=== PATIENT | male | born 1955 | race Caucasian/White ===

== ENCOUNTER → 2021-10-29 08:05 | Outpatient (CLI) | payer OTHER, SELFPAY ==
[2021-10-29 20:41] LABS: SARS-CoV-2 RNA PCR Positive
== END ==
PROVIDERS: PCP Internal Medicine; Visit Provider Internal Medicine
DX: U07.1 COVID-19 (principal)
CPT/HCPCS: C9803; U0003; U0005

== ENCOUNTER 2022-04-29 01:14 | Day surgery (SDC) | payer OTHER, SELFPAY ==
[2022-04-06 13:55] VITALS: BMI 25.1
--- NOTE | 2022-04-28 10:19 | PM.HPGS ---
History of Present Illness History of Present Illness Consent: Risks, benefits, and alternatives have been discussed and questions answered. Patient agrees to proceed with procedure. Chief complaint: neoplasm screening Narrative: Lyndon Rodriguez is a 66 year old male Referred for colon cancer screening. He has a history of polyps. Review of Systems Review of Systems: All systems reviewed & are unremarkable except as noted in HPI and below PMFSH Past Medical History Medical History Chronic GERD Diabetes Glaucoma HTN (hypertension) Hyperlipidemia Social History Social History Smoking status: Never smoker Alcohol intake: current Drinks per week: 10 Living arrangements: with family Spiritual care concerns: No Meds Home Medications and Allergies Home Medications Medication Instructions Recorded Confirmed Type atorvastatin 20 mg tablet 20 mg PO DAILY 04/06/22 04/06/22 History ergocalciferol (vitamin D2) 400 400 unit PO DAILY 04/06/22 04/06/22 History unit capsule ezetimibe 10 mg tablet 10 mg PO DAILY 04/06/22 04/06/22 History flunisolide 25 mcg (0.025 %) nasal 2 spray intranasal DAILY PRN 04/06/22 04/06/22 History spray Allergy Symptoms metformin 500 mg tablet 500 mg PO BID 04/06/22 04/06/22 History nebivolol 5 mg tablet 5 mg PO DAILY 04/06/22 04/06/22 History omega-3 fatty acids-vitamin E 1 cap PO DAILY 04/06/22 04/06/22 History 1,000 mg capsule timolol maleate 0.5 % eye drops 1 drp EACH EYE DAILY 04/06/22 04/06/22 History Allergies Allergy/AdvReac Type Severity Reaction Status Date / Time No Known Allergies Allergy Verified 04/29/22 06:38 Exam Resp: Auscultation: clear to auscultation bilaterally Cardio: Rate: regular rate Rhythm: regular rhythm GI: GI Palp: Yes Soft to palpation and No Tenderness to palpation present (GI) Assessment and Plan Assessment and plan (1) Colon cancer screening: Code(s): Z12.11 - Encounter for screening for malignant neoplasm of colon Status: Acute Assessment and Plan: Colonoscopy with possible biopsy or polypectomy or cautery or injection of substances.
--- NOTE | 2022-04-28 12:41 | WPDANESEPPF ---
Anes - Initial Pre Proc Eval Procedure: Operation Date: 04/29/22 07:30 Proposed Procedures p Screening Colonoscopy - Abhinav Vela MD Date/Time: 04/28/22 12:41 Surgeon: Abhinav Vela MD Pre Op Diagnosis: neoplasm screening Patient Data Age: 66 Gender: M Height: 1.83 m Weight: 84 kg Allergies Allergy/AdvReac Type Severity Reaction Status Date / Time No Known Allergies Allergy Verified 04/29/22 06:38 Home Medications Medication Instructions Recorded Confirmed Type atorvastatin 20 mg tablet 20 mg PO DAILY 04/06/22 04/06/22 History ergocalciferol (vitamin D2) 400 400 unit PO DAILY 04/06/22 04/06/22 History unit capsule ezetimibe 10 mg tablet 10 mg PO DAILY 04/06/22 04/06/22 History flunisolide 25 mcg (0.025 %) nasal 2 spray intranasal DAILY PRN 04/06/22 04/06/22 History spray Allergy Symptoms metformin 500 mg tablet 500 mg PO BID 04/06/22 04/06/22 History nebivolol 5 mg tablet 5 mg PO DAILY 04/06/22 04/06/22 History omega-3 fatty acids-vitamin E 1 cap PO DAILY 04/06/22 04/06/22 History 1,000 mg capsule timolol maleate 0.5 % eye drops 1 drp EACH EYE DAILY 04/06/22 04/06/22 History Patient hx anesthesia problems: none Family hx anesthesia problems: none Results Review: All pre-operative results and documents have been reviewed as part of the pre-operative evaluation. [facility] Past Medical History Medical History (Updated 04/28/22 @ 12:42 by Jacinto Prater MD) Chronic GERD Diabetes Glaucoma HTN (hypertension) Hyperlipidemia Social History Social History Smoking status: Never smoker Alcohol intake: current Drinks per week: 10 Living arrangements: with family Spiritual care concerns: No Anes - Eval Final PreProcedure Day of Procedure 04/28/22 12:41 Patient weight: normal Heart: regular rate and rhythm Lungs: clear to auscultation and normal air movement Airway: Mallampati scale class II Neurological: alert and oriented Last oral intake: >/= 8 hours ASA classification: III Emergent: no Anesthetic plan: proceed Anesthesia type and monitoring: general GIVS Results Review: All pre-operative results and documents have been reviewed as part of the pre-operative evaluation. Informed Consent: The patient's anesthetic plan and its attendant risks and benefits were discussed with the patient/family/POA. Questions were solicited and answers provided to the satisfaction of the patient/family/POA.
[2022-04-29 06:40] VITALS: BP 150/85; PULSE 56; RESP 18; TEMP 36.2; O2SAT 99
[2022-04-29] MEDS: LACTATED RINGERS 1,000 ML 150 ML IV CONT (06:48)
[2022-04-29 06:53] LABS: Glucose Point of Care 133 mg/dl (65-105)
[2022-04-29] MEDS: SIMETHICONE ORAL SUSPENSION 20 MG/0.3 ML 30 ML BOTTLE 0.6 ML IRRIGATION (07:35)
--- NOTE | 2022-04-29 07:40 | SUR.OPER ---
PT ROLLED ONTO BACK TO REACH CECUM, THEN RETURNED TO LEFT LATERAL
[2022-04-29 07:47] VITALS: BP 133/81; PULSE 58; RESP 13; O2SAT 99
[2022-04-29 07:57] VITALS: BP 130/79; PULSE 55; RESP 13; O2SAT 99
[2022-04-29 08:07] VITALS: BP 142/84; PULSE 60; RESP 13; O2SAT 99
== END 2022-04-29 08:18 | disposition home or self-care (01) ==
PROVIDERS: PCP Internal Medicine; Visit Provider Internal Medicine Gastroenterology
PROC: 0DJD8ZZ Inspection of Lower Intestinal Tract, Via Natural or Artificial Opening Endoscopic (ICD-10-PCS; CPT 45378; principal; 2022-04-29 07:30)
DX: Z12.11 Encounter for screening for malignant neoplasm of colon (principal); Z86.010 Personal history of colon polyps; I10 Essential (primary) hypertension; E11.9 Type 2 diabetes mellitus without complications; E78.5 Hyperlipidemia, unspecified; K21.9 Gastro-esophageal reflux disease without esophagitis; H40.9 Unspecified glaucoma; Z79.84 Long term (current) use of oral hypoglycemic drugs
CPT/HCPCS: 45378; 82948; J2704; J7120

== ENCOUNTER 2023-07-18 15:41 | Outpatient (CLI) | payer OTHER, SELFPAY ==
--- NOTE | ~2023-07-18 | US_ITS ---
EXAMINATION: US soft tissue LE RT DATE: 07/18/2023 16:21 INDICATION: Right thigh lump. TECHNIQUE: Multiple grayscale and Doppler ultrasound images of the right lower limb were obtained. COMPARISON: None FINDINGS: There is no abnormal mass in posterior right thigh in the patient's area of concern. IMPRESSION: 1. No abnormal mass in posterior right thigh in the patient's area of concern. Reviewed, dictated and finalized at location E.
== END 2023-07-18 15:42 | disposition home or self-care (01) ==
PROVIDERS: PCP Internal Medicine; Visit Provider Internal Medicine
DX: R22.40 Localized swelling, mass and lump, unspecified lower limb (principal)
CPT/HCPCS: 76882

== ENCOUNTER → 2023-08-30 11:40 | Outpatient (CLI) | payer OTHER, SELFPAY ==
--- NOTE | ~2023-08-30 | XR_ITS ---
Lumbosacral Spine: AP and lateral views Clinical History: Pain Findings: The normal lordotic curve is maintained. The vertebral bodies and posterior elements are i ntact. The intervertebral disc spaces are preserved. There are mild facet joint degenerative changes in the lumbar spine. The sacroiliac joints are normally outlined. Impression: Mild facet joint degenerative change in the lumbar spine. Reviewed, dictated and finalized at location . [facility] [employer] Impression: Mild facet joint degenerative change in the lumbar spine.
== END ==
PROVIDERS: PCP Internal Medicine; Visit Provider Chiropractor
DX: M47.816 Spondylosis without myelopathy or radiculopathy, lumbar region (principal); M54.50 Low back pain, unspecified
CPT/HCPCS: 72100